=== PATIENT | male | born 2000 ===

== ENCOUNTER 2023-08-07 13:43 | Outpatient (AMB) | payer OTHER, SELFPAY ==
--- NOTE | 2023-08-07 14:03 | MHC.PC.OV ---
Vital Signs 08/07/23 14:05 Height 5 ft 7 in Weight 170 lb BMI 26.6 BP 130/78 Blood Pressure Location Rt brachial Position Sitting Pulse 83 Pulse Source Pulse Oximeter Pulse Oximetry (%) 96 Oxygen Delivery Method Room Air Intake Visit Reasons: Annual PE Allergies mustard hot sauce Allergy (Unknown, Uncoded 08/07/23 16:02) hives Medication List - Last Reconciled 08/07/23 by ELVA Cordero sertraline 50 mg PO DAILY trazodone 100 mg PO BEDTIME PRN Tobacco use date assessed: 08/07/23 Dental Screening Dental Screen Date: 08/07/23 Did you have a dental visit in the last 12 months?: Yes Did you have a dental problem in the last 6 months where you did not have access to dental care?: No Was dental information given to patient?: Patient has dentist HPI Annual PE HPI Details Pt is here for a PE. Labs were already ordered. [facility] Medical History (Updated 08/07/23 @ 16:04 by ELVA Cordero) Physical exam Surgical History No pertinent past surgical history Family History Father No problems noted. Mother Unknown family medical history Brother No problems noted. Social History Housing: House Alcohol intake: never Patient Tobacco Use Status: Never used Tobacco e-Cigarette/Vaping Use: Never Used Second Hand Smoke Exposure: No service: No Cognitive needs: No Hearing needs: No Vision needs: No Questionnaire Thrive Questionnaire Date Thrive assessed: 09/07/22 DRAKE-7 AMB Questionnaire DRAKE-7 Date DRAKE - 7 assessed: 09/07/22 Source: Developed by Drs. Kevin Coronel, Zaida Ahumada, Gilberto Amezquita and colleagues, with an educational pepito from [employer]. Review of Systems Const Denies chills and Denies fever(s) Eyes Denies blurry vision ENT Denies vertigo, Denies dizziness and Denies sore throat Card Denies chest pain at rest, Denies chest pain with activity, Denies diaphoresis, Denies dyspnea and Denies dyspnea on exertion Resp Denies cough, Denies dyspnea, Denies dyspnea on exertion and Denies wheezing GI Denies abdominal pain, Denies melena, Denies hematochezia, Denies constipation, Denies diarrhea and Denies loose stools Denies hematuria Musc Denies numbness and Denies tingling Skin/Breast Denies lesions Neuro Denies vertigo, Denies dizziness, Denies numbness and Denies tingling Psych Denies anxiety, Denies depression, Denies homicidal ideation, Denies suicidal ideation and Denies other (substance abuse) Aller/Immun Denies wheezing Physical exam (Primary Care) Vital Signs: Last Vital Signs Pulse 83 08/07/23 14:05 BP 130/78 08/07/23 14:05 Pulse Ox 96 08/07/23 14:05 Oxygen Delivery Method Room Air 08/07/23 14:05 BMI result Body Mass Index 26.6 Tobacco/Smoking Status: Tobacco use Status Tobacco use date assessed 08/07/23 08/07/23 14:09 Patient Tobacco Use Status Never used Tobacco 08/07/23 14:03 e-Cigarette/Vaping Use Never Used 08/07/23 14:03 Thrive Assessment: Date of Thrive Assessment Date Thrive assessed 09/07/22 08/07/23 14:03 Const General: cooperative Nutritional Appearance: well nourished Orientation/consciousness: patient oriented x3 HENMT Head: Yes normal to inspection, Yes normocephalic and Yes atraumatic Ears: TM's normal bilaterally Eyes General: appearance normal, both eyes and all related structures Alignment and Position: alignment normal and position normal Neck Neck: Yes normal visual inspection and Yes no lymphadenopathy Thyroid: Thyroid normal Resp Effort & Inspection: normal respiratory effort Auscultation: clear to auscultation bilaterally Cardio Rate: regular rate Rhythm: regular rhythm Heart sounds: S1 normal heart sound present, S2 normal heart sound present and no murmurs GI Palpation (GI): Soft to palpation and nontender Auscultation: normal bowel sounds Male General Exam: Yes normal external exam Penis: normal penis Scrotum: scrotum normal, testes descended bilaterally and no inguinal hernias Testes: no testicular mass Skin Rashes: no rashes Neuro General: patient oriented x3, moves all extremities, no focal motor deficits and deep tendon reflexes 2+ bilaterally Romberg Test: Negative Psych Appearance: grossly normal Mental Status: mental status grossly normal Speech and movement: Normal speech and movement present Affect: normal affect Attitude: cooperative Thought process: Normal thought process present Thought content: Normal thought content present Insight: Good insight present (Psych) Judgement: Good judgement present (Psych) Assessment and Plan Assessment & Plan (1) Physical exam: Code(s): Z00.00 - Encounter for general adult medical examination without abnormal findings Plan The patient agreed to the use of a medical collections specialist for this encounter. Scribed for [place] by Angy Jacques medical collections specialist, on 08/07/2023 at 14:35 EST Coding Level of Care Code Est Pt Prev Care 18-39y(71057) Diagnoses Physical exam Z00.00
[2023-08-07 14:05] VITALS: BP 130/78; PULSE 83; O2SAT 96; BMI 26.6
== END 2023-08-07 14:43 | disposition home or self-care (01) ==
PROVIDERS: PCP Nurse Practitioner Family; Visit Provider Nurse Practitioner Family
DX: Z00.00 Encounter for general adult medical examination without abnormal findings (principal)
CPT/HCPCS: 99395

== ENCOUNTER 2024-02-09 08:26 | Outpatient (AMB) | payer OTHER, MEDICAID, SELFPAY ==
[2024-02-09 08:27] VITALS: BP 118/72; PULSE 74; TEMP 36.9; O2SAT 98
--- NOTE | 2024-02-09 08:27 | AM.OFFWIN_ITS ---
Intake Vital Signs 02/09/24 08:27 Height 5 ft 7 in BP 118/72 Blood Pressure Location Rt brachial Position Sitting Pulse 74 Pulse Source Pulse Oximeter Temp 98.4 F Temp Source Oral Pulse Oximetry (%) 98 Oxygen Delivery Method Room Air Intake Visit Reasons: EP LT foot ?Infection Intake Note: pt's left big toe is swollen and red since Monday pt says he has been soaking in hot water with no relief Patient Tobacco Use Status: Never used Tobacco Allergies mustard hot sauce Allergy (Unknown, Uncoded 02/09/24 08:41) hives Medication List - Last Reconciled 02/09/24 by Ramírez Jensen MD sertraline 50 mg PO DAILY trazodone 100 mg PO BEDTIME PRN HPI EP LT foot ?Infection HPI Details 23 yr old male presents to the office fo r a sick visit. Patient has pain, swelling and redness in the great toe of the left foot. Sx present for the past few days. He believes it started from wearing tight boots. [facility] Medical History (Updated 08/07/23 @ 16:04 by LAZARO Cordero-KERA) Physical exam Surgical History No pertinent past surgical history Family History Father No problems noted. Mother Unknown family medical history Brother No problems noted. Social History Housing: House Alcohol intake: never Patient Tobacco Use Status: Never used Tobacco e-Cigarette/Vaping Use: Never Used Second Hand Smoke Exposure: No service: No Cognitive needs: No Hearing needs: No Vision needs: No Physical Exam Vital Signs: Last Vital Signs Temp 98.4 F 02/09/24 08:27 Pulse 74 02/09/24 08:27 BP 118/72 02/09/24 08:27 Pulse Ox 98 02/09/24 08:27 Oxygen Delivery Method Room Air 02/09/24 08:27 Const General: cooperative and healthy appearing Nutritional Appearance: well nourished Orientation/consciousness: patient oriented x3 Limitations: no limitations HEENT Head: Yes normal to inspection Eyes General: appearance normal, both eyes and all related structures Neck Neck: Yes normal visual inspection Chest Chest palpation & inspection: normal palpation of entire chest wall Resp Effort & Inspection: normal respiratory effort Neuro General: patient oriented x3 Extrem Other: Left foot: Great toe: Swelling and edema on the edge of the nail bed adjoining the nail. Minimal discharge. ROM at the toe is normal. Assessment & Plan Assessment & Plan (1) Paronychia of great toe: Code(s): L03.039 - Cellulitis of unspecified toe Plan: Cephalexin called in. Keep foot elevated. If sx do not improve, to follow up here. Coding Level of Care Code Est Pt Level 3 (97171) Diagnoses Paronychia of great toe L03.039
== END 2024-02-09 09:14 | disposition home or self-care (01) ==
PROVIDERS: PCP Nurse Practitioner Family; Visit Provider Internal Medicine
DX: L03.039 Cellulitis of unspecified toe (principal)
CPT/HCPCS: 99213

== ENCOUNTER 2024-08-26 08:50 | Outpatient (AMB) | payer OTHER, MEDICAID, SELFPAY ==
--- NOTE | 2024-08-26 09:15 | MHC.OFFWIV ---
Intake Vital Signs 08/26/24 09:16 Height 5 ft 7 in Weight 178 lb BMI 27.9 BP 110/80 Blood Pressure Location Rt brachial Position Sitting Pulse 58 Pulse Source Pulse Oximeter Pulse Oximetry (%) 97 Oxygen Delivery Method Room Air Intake Visit Reasons: EP RT shoulder injury/not work related Intake Note: Patient here for right shoulder pain, he states he was at work and lifted something over his head and popped something out of place. Patient Tobacco Use Status: Never used Tobacco Allergies mustard hot sauce Allergy (Unknown, Uncoded 08/26/24 09:17) hives Do you need a note to return to daycare/school/sports/work: Yes HPI EP RT shoulder injury/not work related HPI Details This note is constructed using voice recognition software. While every effort has been made to ensure accuracy, data developer errors may have been included. The patient is a 24 year old male who presents to the clinic today with right shoulder injury. He notes that when he was 14 he had a fracture in the shoulder, which has left him unable to work above his head. 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 the shoulder. He reports that he was able to immediately put the shoulder back into place, but needs an x-ray to evaluate, as well as a letter to prevent him from further work above his head. 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 [facility] Medical History (Updated 08/07/23 @ 16:04 by ELVA Cordero) Physical exam Surgical History No pertinent past surgical history Family History Father No problems noted. Mother Unknown family medical history Brother No problems noted. Social History Housing: House Alcohol intake: never Patient Tobacco Use Status: Never used Tobacco e-Cigarette/Vaping Use: Never Used Second Hand Smoke Exposure: No service: No Cognitive needs: No Hearing needs: No Vision needs: No Review of Systems Const All systems reviewed & are unremarkable except as noted in HPI and below Physical Exam Vital Signs: Last Vital Signs Pulse 58 08/26/24 09:16 BP 110/8 L 08/26/24 09:16 Pulse Ox 97 08/26/24 09:16 Oxygen Delivery Method Room Air 08/26/24 09:16 BMI result Body Mass Index 27.9 Const General: cooperative, healthy appearing, comfortable, no acute distress and alert Orientation/consciousness: patient oriented x3 Limitations: no limitations Resp Effort & Inspection: normal respiratory effort and able to speak in complete sentences Skin General skin exam: no rashes or lesions noted, elasticity normal and turgor normal Neuro General: patient oriented x3 Extrem General: Yes normal to inspection, Yes full ROM, Yes capillary refill normal and Yes normal exam except as noted Psych Appearance: grossly normal Mental Status: mental status grossly normal Speech and movement: Normal speech and movement present Affect: normal affect Assessment & Plan Assessment & Plan (1) Right shoulder injury: Code(s): S49.91XA - Unspecified injury of right shoulder and upper arm, initial encounter Qualifiers: Encounter type: initial encounter Qualified Code(s): S49.91XA - Unspecified injury of right shoulder and upper arm, initial encounter Plan: X-ray ordered to evaluate, advised patient NSAIDs as needed for pain, ice, rest. Advised patient not to do work above the head, letter provided for work. Patient has follow up with PCP next week, advised to keep this appointment. Plan See above for full details and plan. Orders: Orders XR shoulder RT min 2V Today S49.91XA - Unspecified injury of right shoulder and upper arm, initial encounter Coding Level of Care Code Est Pt Level 4 (26289) Diagnoses Injury of right shoulder, initial encounter S49.91XA Encounter type: initial encounter
[2024-08-26 09:16] VITALS: BP 110/80; PULSE 58; O2SAT 97; BMI 27.9
== END 2024-08-26 09:40 | disposition home or self-care (01) ==
PROVIDERS: PCP Nurse Practitioner Family; Visit Provider Registered Nurse
DX: S49.91XA Unspecified injury of right shoulder and upper arm, initial encounter (principal)

== ENCOUNTER → 2024-08-26 08:50 | Outpatient (BNVA) | payer OTHER, MEDICAID, SELFPAY | PROVIDERS: PCP Nurse Practitioner Family; Visit Provider Registered Nurse ==

== ENCOUNTER 2024-08-26 09:35 | Outpatient (REF) | payer OTHER, MEDICAID, SELFPAY ==
--- NOTE | ~2024-08-26 | XR_ITS ---
EXAMINATION: XR SHOULDER, RIGHT CLINICAL INFORMATION: Unspecified injury of right shoulder and upper arm. COMPARISON: None available. TECHNIQUE: Three views of the right shoulder. FINDINGS: Mild dextroscoliosis in the imaged upper thoracic spine. Acromioclavicular joint preserved. Mild degenerative changes along the inferior aspect of the glenoid. XR/XR shoulder RT min 2V IMPRESSION: No displaced fracture appreciated. This study was presented today 08/26/2024 for interpretation. Stat results provided at this time as requested by referring provider. Electronically signed by: Lexy Singh MD 08/26/2024 12:56 PM EDT
== END 2024-08-26 09:36 | disposition home or self-care (01) ==
LOC: HO.HMGCX 09:35
PROVIDERS: PCP Nurse Practitioner Family; Visit Provider Registered Nurse
DX: S49.91XA Unspecified injury of right shoulder and upper arm, initial encounter (principal)
CPT/HCPCS: 73030

== ENCOUNTER 2024-09-05 09:43 | Outpatient (AMB) | payer OTHER, MEDICAID, SELFPAY ==
[2024-09-05 09:55] VITALS: BP 128/80; PULSE 75; O2SAT 95; BMI 27.9
--- NOTE | 2024-09-05 09:55 | MHC.PC.OV ---
Vital Signs 09/05/24 09:55 Height 5 ft 7 in Weight 178 lb 2 oz BMI 27.9 BP 128/80 Blood Pressure Location Lt brachial Position Sitting Pulse 75 Pulse Source Pulse Oximeter Pulse Oximetry (%) 95 Oxygen Delivery Method Room Air Intake Visit Reasons: PE Intake Note: Pt is here today for his annual PE Allergies mustard hot sauce Allergy (Unknown, Uncoded 08/26/24 09:17) hives Tobacco use date assessed: 09/05/24 Dental Screening Dental Screen Date: 09/05/24 Did you have a dental visit in the last 12 months?: Yes Did you have a dental problem in the last 6 months where you did not have access to dental care?: No Was dental information given to patient?: Patient has dentist HPI HPI Comments History of Present Illness Details 24 y/o male patient who presents to the clinic today for PE. He is a patient of [facility]. He is healthy patient. PMHX significant for Anxiety and Insomnia. He currently takes Trazodone 100 mg which he reports that does not really work well. He has been taking Advil PM with Trazodone, which works well. 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 Lives home with Grandparents. [facility] Medical History (Updated 09/05/24 @ 10:44 by Jeanette Kauffman NP) Physical exam Surgical History No pertinent past surgical history Family History Father No problems noted. Mother Unknown family medical history Brother No problems noted. Social History Housing: House Alcohol intake: never Patient Tobacco Use Status: Never used Tobacco e-Cigarette/Vaping Use: Never Used Second Hand Smoke Exposure: No service: No Cognitive needs: No Hearing needs: No Vision needs: No Questionnaire PHQ-9 Over the last 2 weeks, how often have you been bothered by any of the following problems? 1. Little interest or pleasure in doing things: not at all 2. Feeling down, depressed, or hopeless: not at all 3. Trouble falling or staying asleep, or sleeping too much: not at all 4. Feeling tired or having little energy: not at all 5. Poor appetite or overeating: not at all 6. Feeling bad about yourself - or that you are a failure or have let yourself or your family down: not at all 7. Trouble concentrating on things, such as reading the newspaper or watching television: not at all 8. Moving or speaking so slowly that other people could have noticed. Or the opposite - being so fidgety or restless that you have been moving around a lot more than usual: not at all 9. Thoughts that you would be better off or of hurting yourself in some way: not at all Total score: 0 Depression Screening Interpretation: Negative Depression Screening Done: Yes 09257 - PHQ-9 Billing: Yes Source: Developed by Drs. Kevin Coronel, Zaida Ahumada, Gilberto Amezquita and colleagues, with an educational pepito from [employer]. Thrive Questionnaire Date Thrive assessed: 09/05/24 I am a: Patient What is your living situation today?: I have a steady place to live Within the past 12 months, did the food you bought not last and you didn't have the money to get more?: Never true Within the past 12 months, did you worry whether your food would run out before you got money to buy more?: Never true Do you have trouble paying for medicines?: No Do you have trouble getting transportation to medical appointments?: No Do you have trouble paying your heating and electricity bill?: No Do you have trouble taking care of your child, family member or friend?: No Do you have trouble with day-to-day activities such as bathing, preparing meals, shopping, managing finances, etc.?: No Are you currently unemployed and looking for a job?: No Are you interested in more education?: No Please select the resources that you would like help with: None Currently or been in a relationship where the following occur: I choose not to answer THRIVE Score: 0 AUDIT C Alcohol Use Questionnaire (AUDIT-C) 1. How often do you have a drink containing alcohol?: Never 3. How often do you have six or more drinks on one occasion?: Never Total Score: 0 Score Reviewed/Action Taken: Yes DRAKE-7 AMB Questionnaire DRAKE-7 Date DRAKE - 7 assessed: 09/05/24 Feeling nervous, anxious, or on edge: 0 = Not at all Not being able to stop or control worryin = Not at all Worrying too much about different things: 0 = Not at all Trouble relaxin = Not at all Being so restless that it is hard to sit still: 0 = Not at all Becoming easily annoyed or irritable: 0 = Not at all Feeling afraid as if something awful might happen: 0 = Not at all Total DRAKE-7 score (0-4 normal; 5-9 mild; 10-14 moderate; 15-21 severe): 0 Source: Developed by Drs. Kevin Coronel, Zaida Ahumada, Gilberto Amezquita and colleagues, with an educational pepito from [employer]. DRAKE-7 Assessment Billing DRAKE-7 Assessment Tool: DRAKE-7 Assessment 03949 Review of Systems Const All systems reviewed & are unremarkable except as noted in HPI and below Physical exam (Primary Care) Vital Signs: Last Vital Signs Pulse 75 09/05/24 09:55 BP 128/80 09/05/24 09:55 Pulse Ox 95 09/05/24 09:55 Oxygen Delivery Method Room Air 09/05/24 09:55 BMI result Body Mass Index 27.9 Tobacco/Smoking Status: Tobacco use Status Tobacco use date assessed 09/05/24 09/05/24 09:58 Patient Tobacco Use Status Never used Tobacco 09/05/24 09:58 e-Cigarette/Vaping Use Never Used 09/05/24 09:58 PHQ-9: PHQ-9 Score PHQ-9: Total score 0 09/05/24 10:25 Depression Screening Interpretation: Negative Thrive Assessment: Date of Thrive Assessment Date Thrive assessed 09/05/24 09/05/24 09:58 Currently or been in a relationship where the following occur: I choose not to answer Const General: cooperative, comfortable and no acute distress Orientation/consciousness: patient oriented x3 HENMT Head: Yes normocephalic Ears: external ears normal and TM's normal bilaterally General nose exam: Normal external nose present and Normal nasal mucous membranes and turbinates present Face and sinus: Yes sinuses nontender Mouth: moist mucous membranes Throat: Yes posterior oropharynx normal Eyes Pupils: Equal, round and reactive pupils present EOM: EOMs intact bilaterally Neck Neck: Yes full ROM Thyroid: Thyroid normal Chest Chest palpation & inspection: normal inspection of the chest Resp Effort & Inspection: normal respiratory effort and able to speak in complete sentences Auscultation: clear to auscultation bilaterally, no crackles, no rales, no rhonchi and no wheezes Cardio Heart sounds: S1 normal heart sound present and S2 normal heart sound present GI Inspection: Yes normal to inspection Palpation (GI): Soft to palpation, not firm, nontender, no guarding, not rigid and No hepatosplenomegaly present Percussion: Yes normal to percussion Auscultation: normal bowel sounds Rectal Exam - Male: Yes deferred General: Yes no CVA tenderness Back/Spine/Pelvis Back: no CVA tenderness Skin General skin exam: no rashes or lesions noted Neuro General: patient oriented x3, gait normal and moves all extremities Cranial nerves: Yes Equal, round and reactive pupils present Extrem General: Yes normal to inspection Psych Speech and movement: Normal speech and movement present Coding Level of Care Code Est Pt Level 4 (56779) Diagnoses Encounter for routine adult health examination without abnormal findings Z00.00 Anxiety with depression F41.8 Insomnia due to other mental disorder F51.05; F99 Insomnia type: due to other mental disorder Additional Codes DRAKE-7 Assessment Billing - DRAKE-7 Assessment Tool: DRAKE-7 Assessment [id number] ([id number]) Time Spent (min) 30 Comment CPE Assessment & Plan Assessment & Plan (1) Encounter for routine adult health examination without abnormal findings: Code(s): Z00.00 - Encounter for general adult medical examination without abnormal findings Plan: Examination WNL (2) Anxiety with depression: Code(s): F41.8 - Other specified anxiety disorders Category: Medical Plan: Continue on Trazodone (3) Insomnia: Code(s): G47.00 - Insomnia, unspecified Category: Medical Qualifiers: Insomnia type: due to other mental disorder Qualified Code(s): F51.05 - Insomnia due to other mental disorder; F99 - Mental disorder, not otherwise specified Plan: Offered to increase Trazodone Dose, he declined for now. Failed Melatonin OTC Plan Routine Lab work ordered. Pt to RTC fasting. Orders: Orders Complete Blood Count Auto Diff Today Z00.00 - Encounter for general adult medical examination without abnormal findings Comprehensive Met. Panel Today Z00.00 - Encounter for general adult medical examination without abnormal findings Lipid Panel Today Z00.00 - Encounter for general adult medical examination without abnormal findings TSH reflex Free T4 Today Z00.00 - Encounter for general adult medical examination without abnormal findings
== END 2024-09-05 10:26 | disposition home or self-care (01) ==
LOC: HO.HMCC 09:44
PROVIDERS: PCP Nurse Practitioner Family; Visit Provider Nurse Practitioner Family
DX: Z00.00 Encounter for general adult medical examination without abnormal findings (principal); F41.8 Other specified anxiety disorders; F51.05 Insomnia due to other mental disorder; F99 Mental disorder, not otherwise specified

== ENCOUNTER → 2024-09-05 09:43 | Outpatient (BNVA) | payer OTHER, MEDICAID, SELFPAY | PROVIDERS: PCP Nurse Practitioner Family; Visit Provider Nurse Practitioner Family | DX: Z00.01 Encounter for general adult medical examination with abnormal findings (principal); F41.8 Other specified anxiety disorders; F51.05 Insomnia due to other mental disorder; F99 Mental disorder, not otherwise specified; L03.032 Cellulitis of left toe | CPT/HCPCS: 96127 ==

== ENCOUNTER 2025-01-29 09:40 | Outpatient (AMB) | payer OTHER, MEDICAID, SELFPAY ==
[2025-01-29 09:43] VITALS: BP 110/76; PULSE 82; O2SAT 98
--- NOTE | 2025-01-29 09:43 | AM.OFFWIN_ITS ---
Intake Vital Signs 01/29/25 09:43 Weight 188 lb BP 110/76 Blood Pressure Location Rt brachial Position Sitting Pulse 82 Pulse Source Pulse Oximeter Pulse Oximetry (%) 98 Oxygen Delivery Method Room Air Intake Visit Reasons: EP pain on RT shoulder Intake Note: Patient here for right shoulder pain. Patient Tobacco Use Status: Never used Tobacco Allergies mustard hot sauce Allergy (Unknown, Uncoded 01/29/25 09:48) hives Do you need a note to return to daycare/school/sports/work: Yes HPI HPI Comments History of Present Illness Details Patient is a 24yo M who presents to office with R shoulder pain requesting work note Patient sees Av Turner for PCP He has hx of broken R shoulder 10 years ago Since then he has constant clicking to the shoulder and states it pops in and out constantly Patient works for [employer] and has hx of shoulder dislocation with heavy lifting at work He transferred to a new 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 Mother Unknown family medical history Brother No problems noted. Social History Housing: House Alcohol intake: never Patient Tobacco Use Status: Never used Tobacco e-Cigarette/Vaping Use: Never Used Second Hand Smoke Exposure: No service: No Cognitive needs: No Hearing needs: No Vision needs: No Review of Systems Const Denies chills, Denies fatigue, Denies fever(s) and Denies weakness Musc Reports arthralgias (R shoulder) and Denies tingling Skin/Breast Denies lesions and Denies erythema Neuro Denies tingling, Denies paresthesias and Denies weakness Endo Denies fatigue Physical Exam Vital Signs: Last Vital Signs Pulse 82 01/29/25 09:43 BP 110/76 01/29/25 09:43 Pulse Ox 98 01/29/25 09:43 Oxygen Delivery Method Room Air 01/29/25 09:43 General: Non-toxic, NAD. Speaking full sentences. Skin: Warm dry throughout No R shoulder join edema, erythema or ecchymosis noted. Upper extremities equal in size and shape bilaterally. Eye: EOMI Respiratory: CTA bilaterally. No wheezes, rales or rhonchi Cardiac: RRR. No murmur. Radial pulse 2+ and equal in time/strength bilaterally MSK: No ttp R AC joint, clavicle, bicipital groove or lateral humeral head. + Full ROM R shoulder but increase laxity of joint with ROM 5/5 special education curriculum specialist strength bilaterally. Neurology: Alert. No aphasia or facial droop. Gait without abnormality Psych: Good mood and affect Assessment & Plan Assessment & Plan (1) Shoulder pain: Code(s): M25.519 - Pain in unspecified shoulder Qualifiers: Chronicity: chronic Laterality: right Qualified Code(s): M25.511 - Pain in right shoulder; G89.29 - Other chronic pain Plan: Patient seen and evaluated. Note given Told needs to see PCP and possibly ortho Patient gave verbal understanding and had no additional questions or concerns at time of discharge All questions answered Coding Level of Care Code Est Pt Level 3 (76661) Diagnoses Chronic right shoulder pain M25.511; G89.29 Chronicity: chronic Laterality: right
--- OUTSIDE RECORDS SUMMARY | 2025-01-29 10:47 | XMS_ITS ---
Author Name [facility] Organization Unknown Care Team Organization Name Specialty Phone Email Start Date End [facility] te [facility]
--- OUTSIDE RECORDS SUMMARY | 2025-01-29 10:48 | XMS_ITS | Data Portability ---
Author Organization ELÍAS [facility] , [address] Address [address] [place] [address] Assessment No assessment recorded. Plan of Treatment Reminders Order Date Submit Date Provider Last Modified By Organization Details Last Modified Time Details Appointments None record ed. Lab None record ed. Referral None record ed. Procedures None record ed. Surgeries None record ed. Imaging None record ed. Medication Orders None record ed. Patient TargetsNo targets recorded. Patient InstructionsNo instructions recorded. Reason for Referral None Reported. Procedures Surgical History Date Name Laterality Status Provider Name and Address Organization Details Recorded Time OC-UDS Rapid 5 or 10 panel Template completed DEBBIE [facility] 10/12/2022 12:26:15 Imaging Results None recorded. Procedure Notes None recorded. Medical Equipment None Reported. Medications Name Sig Start Date Stop Date Status Note LastModified by Organization Details LastModified Time ibuprofen 800 mg tablet TAKE 1 TABLET 3 TIMES A DAY NEEDED active Not Available Not Available No t Available penicillin V potassium 500 mg tablet TAKE 2 TABLETS THE FIRST TIME AND THEN ONE TABLET EVERY 6 HOURS UNTIL FINISHED active Not Available Not Available No t Available trazodone 100 mg tablet TAKE 1/2 TABLET BY MOUTH AT BEDTIME NEEDED SLEEP active Not Available Not Available No t Available sertraline 25 mg tablet active Not Available Not Available Not Available DentaGel 1.1 % USE BEFORE BEDTIME active Not Available Not Available No t Available Vitals None Recorded Social History None recorded. Functional Status None recorded. Mental Status None recorded. Family History Nothing Reported. Medical History No medical history recorded. Past Encounters Encounter ID Performer Location Encounter Start Date Encounter Closed Date Diagnosis/Indication Diagnosis SNOMED-CT Code Diagnosis ICD10 Code Diagnosis Note [id number] [address] [address] [place] [address] 08/12/2020 14:34:07 08/12/2020 14:59:06 [id number] ELÍAS COKER [address] [place] [address] 10/12/2022 11:43:51 10/12/2022 12:28:55 Health Concerns Section Related Observation LastModified by Organization Detai ls LastModified Time None Recorded Concern Status LastModified by Organization Details LastModified Time None Recorded Advance Directives Directive None Recorded Payers Encounter Date Sequence Insurance Name Policy Number Policy Kurtz Covered Member ID Kurtz Member ID Guarantor Name 10/12/2022 OC-ESCREEN Generic Employer [employer] Jan Jaeger
--- OUTSIDE RECORDS SUMMARY | 2025-01-29 10:48 | XMS_ITS | Patient Health Record ---
Author Organization [facility] Address [address] [place] [address] Care Team Providers Care Echocardiograph Technician Name Role Phone Evon Ardon Unavailable [phone] Reason For Referral No Information Encounters Encounter Location Date Provider Diagnosis [facility] [address] [place] [address] 01/09/2025 Evon Duglas Plan Of Treatment Next Appt Details Provider Name:Evon Torres Duglas , 03/26/2025 10:30:00 AM, [address] [facility], [place], [address], Insurance Providers Payer Name Payer Address Payer Phone Subscriber Number Group Number Insured Name Patient Relationship to Insured Coverage Start Date Coverage End Date [employer] [address] Becka mittal, [place] [address] [id number] Jan Jaeger Self - patient is the insured
--- OUTSIDE RECORDS SUMMARY | 2025-01-29 10:48 | XMS_ITS ---
Author Organization [facility] Address [address] [place] [address] Care Team Providers Care Casing Splitter Name Role Phone Evon Ardon [phone] REASON FOR VISIT CARBONIZER Encounters Encounter Location Date Provider Diagnosis [facility] [address] [place] [address] 01/09/2025 Evon Duglas Plan Of Treatment Next Appt Details Provider Name:Evon Torres Duglas , 03/26/2025 10:30:00 AM, [address] [facility], [place], [address], Progress Notes * Jan JAEGERDOB:2000 (24 yo M)Acc No.[id number]:01/09/2025 Patient:?MIL Jan :2000???Age:24 Y???Sex:Male Address:[address] [place] [address], [place] [place], [address] * true * Date:? Generated for Sairai jennifer/Melina/eTransmitting on:?01/29/2025 10:47 AM EDT
== END 2025-01-29 10:17 | disposition home or self-care (01) ==
PROVIDERS: PCP Nurse Practitioner Family; Visit Provider Physician Assistant
DX: M25.511 Pain in right shoulder (principal); G89.29 Other chronic pain

== ENCOUNTER 2025-07-22 10:25 | Outpatient (AMB) | payer OTHER, SELFPAY ==
--- NOTE | 2025-07-22 10:30 | MHC.OFFWIV ---
Intake Vital Signs 07/22/25 10:31 Height 5 ft 7 in Weight 181 lb BMI 28.3 BP 124/68 Blood Pressure Location Lt brachial Position Sitting Respiration 16 Pulse 78 Pulse Source Pulse Oximeter Temp 98.0 F Temp Source Oral Pulse Oximetry (%) 97 Intake Visit Reasons: EP RT shoulder pain/ work note Patient Tobacco Use Status: Never used Tobacco Accompanied by: Self / Same As Patient Allergies mustard hot sauce Allergy (Unknown, Uncoded 01/29/25 09:48) hives Medication List - Last Reconciled 07/22/25 by Alexandra George MD trazodone 100 mg PO BEDTIME PRN HPI EP RT shoulder pain/ work note HPI Details History of Present Illness The patient is a 24 year old male presenting with persistent right shoulder pain. Right Shoulder Pain: - The pain is attributed to previous injury when he was young, states he has no cartiliage in his shoulder - Patient reports pain persists daily. but tolerable - Patient expresses current symptoms impact job duties at [employer], which involve lifting boxes overhead. - Reports prior x-ray imaging confirmed no fractures. - Overhead lifting and reaching directly exacerbate pain. requesting letter stating no over head up lifting Problem List - Right Shoulder Pain with associated functional limitations Patient Instructions - The patient was advised to avoid any overhead reaching or lifting activities due to shoulder pain and limitations. 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 Mother Unknown family medical history Brother No problems noted. Social History Housing: House Alcohol intake: never Patient Tobacco Use Status: Never used Tobacco e-Cigarette/Vaping Use: Never Used Second Hand Smoke Exposure: No service: No Cognitive needs: No Hearing needs: No Vision needs: No Physical Exam Vital Signs: Last Vital Signs Temp 98.0 F 07/22/25 10:31 Pulse 78 07/22/25 10:31 Resp 16 07/22/25 10:31 BP 124/68 07/22/25 10:31 Pulse Ox 97 07/22/25 10:31 BMI result Body Mass Index 28.3 Assessment & Plan Assessment & Plan (1) Clicking right shoulder: Code(s): M25.811 - Other specified joint disorders, right shoulder (2) Pain in right shoulder: Code(s): M25.511 - Pain in right shoulder Qualifiers: Chronicity: chronic Qualified Code(s): M25.511 - Pain in right shoulder; G89.29 - Other chronic pain Plan History of Present Illness The patient is a 24 year old male presenting with persistent right shoulder pain. Right Shoulder Pain: - The pain is attributed to previous injury when he was young, states he has no cartiliage in his shoulder - Patient reports pain persists daily. but tolerable - Patient expresses current symptoms impact job duties at [employer], which involve lifting boxes overhead. - Reports prior x-ray imaging confirmed no fractures. - Overhead lifting and reaching directly exacerbate pain. requesting letter stating no over head up lifting Problem List - Right Shoulder Pain with associated functional limitations Patient Instructions - The patient was advised to avoid any overhead reaching or lifting activities due to shoulder pain and limitations. letter provided Coding Level of Care Code Est Pt Level 3 (72102) Diagnoses Clicking right shoulder M25.811 Chronic right shoulder pain M25.511; G89.29 Chronicity: chronic
[2025-07-22 10:31] VITALS: BP 124/68; PULSE 78; RESP 16; TEMP 36.7; O2SAT 97; BMI 28.3
--- OUTSIDE RECORDS SUMMARY | 2025-07-22 13:41 | XMS_ITS | Patient Health Record ---
Author [facility] Address [address] [facility] [place] [address] Care Team Providers Care Bottom Liner Name Role Phone Av Macedo Primary Care Provider Unav ailable Black, Evon Unavailable [phone] Allergies Allergen (clinical drug ingredient) Drug/Non Drug Allergy documented on EMR Reaction Allergy Type Onset Date Status Bee Sting Unknown Allergy Active Reason For Referral No Information Medications Medication SIG (Take, Route, Fr equency, Duration) Notes Start Date End Date Status Cephalexin 500 MG 1 capsule Orally Thr ee times a day; Duration: 10 days Active traZODone HCl Active Social History Tobacco Use: Social History Observation Description Date Details (start date - stop date) Never Smoker NA - NA Tobacco use other than smoking: Question Answer Notes Are you an other tobacco user? No Tobacco Control (Standard) Question Answer Notes Tobacco use: Nonsmoker Additional Findings: Tobacco non-user Current no nsmoker AUDIT-C (Standard) Question Answer Notes Did you have a drink containing alcohol in the p ast year? No Points 0 Interpretation Negative Problems Problem Type SNOMED Code ICD Code Onset Dates Problem Status W/U Status Risk Notes Problem Ulcer of toe of left foot (disorder) (4611862905 [id number]) Skin ulcer of toe of left foot, limited to breakdown of skin (L97.521) Active confirmed Response to treatment Vital Signs Blood pressure diastolic 70 mm Hg 04/09/2025 Height 5ft 7in in 04/09/2025 Blood pressure systolic 120 mm Hg 04/09/2025 Weight 180 lbs 04/09/2025 BMI 28.19 kg/m2 04/09/2025 Procedures Procedure Date Ordered Date Performed Result Body Sit e 78838-Ifrsylax Plate 03/26/2025 N/A 30198- Debride <25 sq cm 04/09/2025 N/A Encounters Encounter Location Date [facility] [place] [address] 03/26/2025 Evon Black Ingrown nail L60.0 and Cellulitis of toe of left foot L03.[address] [place] [address] 04/09/2025 Evon Black Skin ulcer of toe of left foot, limited to breakdown of skin L97.521 [facility] [address] [place] [address] 01/09/2025 Evon Black [facility] [address] 02/13/2025 Evon Black Assessments Encounter Date Diagnosis (ICD Code) Assessment Notes Treatment Notes Treatment Clinical Notes Section Notes 03/26/2025 Ingrown nail (ICD-10 - L60.0) 03/26/2025 Cellulitis of toe of left foot (ICD-10 - L03.032) 04/09/2025 Skin ulcer of toe of left foot, limited to breakdown of skin (ICD-10 - L97.521) Response to treatment Patient Educated with: WOUND CARE INSTRUCTIONS.p df (WOUND CARE INSTRUCTIONS.p df) 04/09/2025 Other Plan Of Treatment Pending Test Test Name Order Date 58835-Fptziwbb Plate 03/26/2025 40880- Debride <25 sq cm 04/09/2025 Insurance Providers Payer Name Payer Address Payer Phone Subscriber Number Group Number Insured Name Patient Relationship to Insured Coverage Start Date Coverage End Date C[employer] [address] [place] [address] [id number] Jan Jaeger Self - patient is the insured
--- OUTSIDE RECORDS SUMMARY | 2025-07-22 13:41 | XMS_ITS ---
[facility] Unknown Care Team Organization Name Specialty Phone Email Start Date End [facility]
== END 2025-07-22 10:53 | disposition home or self-care (01) ==
PROVIDERS: PCP Nurse Practitioner Family; Visit Provider Internal Medicine
DX: M25.811 Other specified joint disorders, right shoulder (principal); M25.511 Pain in right shoulder; G89.29 Other chronic pain

== ENCOUNTER 2025-10-23 10:35 | Outpatient (AMB) | payer OTHER, SELFPAY ==
--- OUTSIDE RECORDS SUMMARY | 2025-09-10 08:00 | XMS_ITS ---
Author Organization [facility] Address [address] [place] [address] Care Team Providers Care Oil Well Services Field Supervisor Name Role Phone Av Macedo Primary Care Provider Unav ailable Evon Ardon [phone] Encounters Encounter Location Date Provider Diagnosis [address] [address] 09/10/2025 Evon Ardon Plan Of Treatment No Information Progress Notes * MILJanDOB:2000 (25 yo M)Acc No.[id number]:09/10/2025 Progress Note Patient: Jan SLATER Provider: Ruperto Ardon DPM :2000 A ge:25 Y S ex:Male Date:09/10/2025 [facility] Pcp:LYLY [place] Subjective: * Chief Complaints: * * Medical History: Objective: * Vitals: Assessment: Plan: * Treatment: * Images: * The named appointment provid er may or may not be the originator of this progress note, and it is not deemed complete until electronically signed by the appointment provider. Sign off status: Pending * Provider: Ruperto Ardon DPM Date: 11/10/2024 Generated for Jazlyn rodriguez/Melina/eTransmitting on: 12/24/2024 01:20 PM EST
--- OUTSIDE RECORDS SUMMARY | 2025-09-19 06:00 | XMS_ITS ---
Author Organization [facility] Address [address] [place] [address] Care Team Providers Care Single Stayer Operator Name Role Phone Av Macedo Primary Care Provider Unav ailable Black, Evon Unavailable [phone] Alex Retana Encounters Encounter Location Date Provider Diagnosis [address] [address] 09/19/2025 Alex Retana Plan Of Treatment No Information Progress Notes * Jan PALMADOB:2000 (25 yo M)Acc No.[id number]:09/19/2025 Progress Notes Patient: Jan SLATER Provider: Abelardo Retana DPM :2000 A ge:25 Y S ex:Male Date:09/19/2025 Address: [address] [facility] Pcp:LYLY [place] Subjective: * Chief Complaints: * * Medical History: Objective: * Vitals: Assessment: Plan: * Treatment: * Images: * The named appointment provid er may or may not be the originator of this progress note, and it is not deemed complete until electronically signed by the appointment provider. Sign off status: Pending * Provider: Abelardo Retana DPM Date: 11/19/2024 Generated for Sairai ng/Faxing/eTransmitting on: 12/24/2024 01:20 PM EST
[2025-10-23 10:44] VITALS: BP 120/70; PULSE 96; O2SAT 96; BMI 28.7
--- NOTE | 2025-10-23 10:44 | MHC.PC.OV ---
Vital Signs 10/23/25 10:44 Height 5 ft 7 in Weight 183 lb BMI 28.7 BP 120/70 Blood Pressure Location Lt brachial Position Sitting Pulse 96 Pulse Source Pulse Oximeter Pulse Oximetry (%) 96 Oxygen Delivery Method Room Air Intake Visit Reasons: PE Bowling Ball Grader Required: No Accompanied by: Self / Same As Patient Allergies mustard hot sauce Allergy (Unknown, Uncoded 10/23/25 11:11) hives Medication List - Last Reconciled 10/23/25 by ELVA Cordero trazodone 100 mg PO BEDTIME PRN Tobacco use date assessed: 10/23/25 Dental Screening Dental Screen Date: 10/23/25 Did you have a dental visit in the last 12 months?: Yes Did you have a dental problem in the last 6 months where you did not have access to dental care?: No Was dental information given to patient?: Patient has dentist REPLACED BY [facility] Medical History Physical exam Surgical History No pertinent past surgical history Family History Father No problems noted. Mother Unknown family medical history Brother No problems noted. Social History Housing: House Alcohol intake: never Patient Tobacco Use Status: Never used Tobacco e-Cigarette/Vaping Use: Never Used Second Hand Smoke Exposure: No service: No Cognitive needs: No Hearing needs: No Vision needs: No Questionnaire PHQ-9 Over the last 2 weeks, how often have you been bothered by any of the following problems? 1. Little interest or pleasure in doing things: not at all 2. Feeling down, depressed, or hopeless: not at all 3. Trouble falling or staying asleep, or sleeping too much: nearly every day 4. Feeling tired or having little energy: nearly every day 5. Poor appetite or overeating: more than half the days 6. Feeling bad about yourself - or that you are a failure or have let yourself or your family down: nearly every day 7. Trouble concentrating on things, such as reading the newspaper or watching television: not at all 8. Moving or speaking so slowly that other people could have noticed. Or the opposite - being so fidgety or restless that you have been moving around a lot more than usual: not at all 9. Thoughts that you would be better off or of hurting yourself in some way: not at all Total score: 11 Depression Screening Interpretation: Positive (denies any si or hi) Depression Screening Follow-up: Existing condition and Declines treatment Depression Screening Done: Yes 59558 - PHQ-9 Billing: Yes Source: Developed by Drs. Kevin Coronel, Zaida Ahumada, Gilberto Amezquita and colleagues, with an educational pepito from [employer]. Thrive Questionnaire Date Thrive assessed: 09/05/24 I am a: Patient What is your living situation today?: I have a steady place to live Within the past 12 months, did the food you bought not last and you didn't have the money to get more?: I choose not to answer this question Within the past 12 months, did you worry whether your food would run out before you got money to buy more?: I choose not to answer this question Do you have trouble paying for medicines?: I choose not to answer this question Do you have trouble getting transportation to medical appointments?: I choose not to answer this question Do you have trouble paying your heating and electricity bill?: I choose not to answer this question Do you have trouble taking care of your child, family member or friend?: I choose not to answer this question Do you have trouble with day-to-day activities such as bathing, preparing meals, shopping, managing finances, etc.?: I choose not to answer this question Are you currently unemployed and looking for a job?: I choose not to answer this question Are you interested in more education?: I choose not to answer this question Please select the resources that you would like help with: None Currently or been in a relationship where the following occur: I choose not to answer THRIVE Score: 0 AUDIT C Alcohol Use Questionnaire (AUDIT-C) 1. How often do you have a drink containing alcohol?: Never Total Score: 0 DRAKE-7 AMB Questionnaire DRAKE-7 Date DRAKE - 7 assessed: 10/23/25 Feeling nervous, anxious, or on edge: 0 = Not at all Not being able to stop or control worryin = Not at all Worrying too much about different things: 0 = Not at all Trouble relaxin = Not at all Being so restless that it is hard to sit still: 0 = Not at all Becoming easily annoyed or irritable: 0 = Not at all Feeling afraid as if something awful might happen: 0 = Not at all Total DRAKE-7 score (0-4 normal; 5-9 mild; 10-14 moderate; 15-21 severe): 0 Source: Developed by Drs. Kevin Coronel, Zaida Ahumada, Gilberto Amezquita and colleagues, with an educational pepito from [employer]. DRAKE-7 Assessment Billing DRAKE-7 Assessment Tool: DRAKE-7 Assessment 38394 Physical exam (Primary Care) Vital Signs: Last Vital Signs Pulse 96 10/23/25 10:44 BP 120/70 10/23/25 10:44 Pulse Ox 9 L 10/23/25 10:44 BMI result Body Mass Index 28.7 Tobacco/Smoking Status: Tobacco use Status Tobacco use date assessed 10/23/25 10/23/25 10:47 Patient Tobacco Use Status Never used Tobacco 10/23/25 10:47 e-Cigarette/Vaping Use Never Used 10/23/25 10:47 PHQ-9: PHQ-9 Score PHQ-9: Total score 11 10/23/25 10:47 Depression Screening Interpretation: Positive (denies any si or hi) Depression Screening Follow-up: Existing condition and Declines treatment Thrive Assessment: Date of Thrive Assessment Date Thrive assessed 09/05/24 10/23/25 10:47 Currently or been in a relationship where the following occur: I choose not to answer Coding Level of Care Code Est Pt Prev Care 18-39y(84043) Diagnoses Physical exam Z00.00 Additional Codes DRAKE-7 Assessment Billing - DRAKE-7 Assessment Tool: DRAKE-7 Assessment 38162 ([id number]) PHQ-9 - 42919 - PHQ-9 Billing: Yes ([id number]) Assessment & Plan Assessment & Plan (1) Physical exam: Code(s): Z00.00 - Encounter for general adult medical examination without abnormal findings Category: Medical Plan .
--- OUTSIDE RECORDS SUMMARY | 2025-10-23 13:20 | XMS_ITS | Patient Health Record ---
[facility] [place] franc[facility] Oxly Address [address] [place] [address] Care Team Providers Care Magnetic Prospector Name Role Phone Av Macedo Primary Care Provider Unav ailable Black, Evon Unavailable [phone] Alex Retana Unavailable Allergies Allergen (clinical drug ingredient) Drug/Non Drug Allergy documented on EMR Reaction Allergy Type Onset Date Status Bee Sting Unknown Allergy Active Reason For Referral No Information Medications Medication SIG (Take, Route, Fr equency, Duration) Notes Start Date End Date Status Cephalexin 500 MG 1 capsule Orally Thr ee times a day; Duration: 10 days Active traZODone HCl Active Immunizations Vaccine Route Administration Date Status Comme nts Influenza Unknown 09/05/2025 Refused Social History Tobacco Use: Social History Observation [...] Problem Status W/U Status Risk Notes Problem Abscess of toe (880877431) Abscess of toe, left (L02.612) Active confirmed Vital Signs Blood pressure diastolic 70 mm Hg 09/05/2025 Height 5ft 7in in 09/05/2025 Blood pressure systolic 120 mm Hg 09/05/2025 Weight 180 lbs 09/05/2025 BMI 28.19 kg/m2 09/05/2025 Procedures Procedure Date Ordered Date Performed Result Body Sit e 50877-Toszccdw Plate 03/26/2025 N/A 95094- Debride <25 sq cm 04/09/2025 N/A 88246 I&D ABSCESS- SIMPLE,SINGLE 09/05/2025 N/A Encounters Encounter Location Date Provider Diagnosis [address] [address] 03/26/2025 Evon Black Ingrown nail L60.0 and Cellulitis of toe of left foot L03.[address] [address] 04/09/2025 Evon Black Skin ulcer of toe of left foot, limited to breakdown of skin L97.[address] [address] 09/05/2025 Alex Retana Abscess of toe, left L02.[address] [address] 01/09/2025 [facility] [address] 02/13/2025 [facility] [address] 09/04/2025 [facility] Black [address] [address] 09/05/[address] [address] 09/19/2025 Alex Retana Assessments Encounter Date Diagnosis (ICD Code) Assessment Notes Treatment Notes Treatment Clinical Notes Section Notes 03/26/2025 Ingrown nail (ICD-10 - L60.0) 03/26/2025 Cellulitis of toe of left foot (ICD-10 - L03.032) 04/09/2025 Skin ulcer of toe of left foot, limited to breakdown of skin (ICD-10 - L97.521) Response to treatment Patient Educated with: WOUND CARE INSTRUCTIONS.p df (WOUND CARE INSTRUCTIONS.p df) 09/05/2025 Abscess of toe, left (ICD-10 - L02.612) Patient Educated with: WOUND CARE INSTRUCTIONS.p df (WOUND CARE INSTRUCTIONS.p df) 04/09/2025 Other Plan Of Treatment Pending Test Test Name Order Date 61608-Mweldmvf Plate 03/26/2025 61534- Debride <25 sq cm 04/09/2025 65857 I&D ABSCESS- SIMPLE,SINGLE 025 Insurance Providers Payer Name Payer Address Payer Phone Subscriber Number Group Number Insured Name Patient Relationship to Insured Coverage Start Date Coverage End Date [facility] [address] [place], [place] [address] [id number] Jan Jaeger Self - patient is the insured 4
== END 2025-10-23 11:10 | disposition home or self-care (01) ==
LOC: HO.HMCC 10:36
PROVIDERS: PCP Nurse Practitioner Family; Visit Provider Nurse Practitioner Family
DX: Z00.00 Encounter for general adult medical examination without abnormal findings (principal)

== ENCOUNTER → 2025-10-23 10:35 | Outpatient (BNVA) | payer OTHER, SELFPAY | PROVIDERS: PCP Nurse Practitioner Family; Visit Provider Nurse Practitioner Family | DX: Z00.00 Encounter for general adult medical examination without abnormal findings (principal) | CPT/HCPCS: 96127 ==